=== PATIENT | male | born 1985 | race Caucasian/White ===

== ENCOUNTER 2017-01-24 19:07 | Emergency (ER) | payer BC ==
[~2017-01-24] VITALS: Ht 188 cm; Wt 102.6 kg
[2017-01-24] MEDS ORDERED: MULTLIQ7 PO (19:18)
[2017-01-24] MEDS ORDERED: [UNRECOGNIZED DRUG - OTHER] PO (19:18)
[2017-01-24] MEDS ORDERED: ASPI325T PO (19:18)
[2017-01-24] MEDS ORDERED: FISH1200 PO (19:18)
[2017-01-24] MEDS ORDERED: ACETAMINOPHEN TAB 650MG DOSE (2X325MG) PO ONE (20:00)
[2017-01-24] MEDS ORDERED: IBUP80TA PO (20:32)
[2017-01-24 20:56] VITALS: BP 156/96
--- NOTE | 2017-01-25 01:19 | REP ---
Clinical: Trauma . Technique: AP, lateral, bilateral oblique views the ankle . Findings: Marked lateral soft tissue swelling consistent with inversion injury. No acute fracture or dislocation. Skeletal structures and joint spaces are intact and the mortise appears stable. No subcutaneous emphysema or radiodense foreign body. Impression: Lateral soft tissue swelling. No acute fracture or dislocation identified. Signed by Ronen Moe MD 01/25/2017 01:11 A
== END 2017-01-24 20:57 | disposition home or self-care (01) ==
LOC: M ED 20:17
DX: S93.401A Sprain of unspecified ligament of right ankle, initial encounter (principal); X50.0XXA Overexertion from strenuous movement or load, initial encounter; Y92.89 Other specified places as the place of occurrence of the external cause; Y93.89 Activity, other specified; Y99.8 Other external cause status; Z79.82 Long term (current) use of aspirin; Z88.1 Allergy status to other antibiotic agents; Z88.2 Allergy status to sulfonamides

== ENCOUNTER → 2019-01-16 | Outpatient (REF) | payer BC ==
[~2019-01-16] MED LIST: ASPI-1 PO; FISH1200 PO; IBUP80TA PO; MULTLIQ7 PO; [UNRECOGNIZED DRUG - OTHER] PO
== END ==
LOC: M LAB REF 12:18
PROVIDERS: ATTEND Physician Assistant
DX: R30.0 Dysuria (principal)

== ENCOUNTER → 2019-02-19 | Outpatient (CLI) | payer BC ==
[2019-02-19 17:44] LABS: BASO # 0.1 10^3/uL (0.0-0.2); BASO % 0.7 % (0.0-1.0); EOS # 0.2 10^3/uL (0.0-0.50); HEMOGLOBIN 15.9 g/dl (13.5-17.5); LYMPH # 1.9 10^3/uL (1.5-4.5); LYMPH % 21.4 % (24.0-44.0); MEAN CORPUSCULAR HEMOGLOBIN 30.8 pg (27.0-33.0); MEAN CORPUSCULAR HGB CONC 33.8 g/dl (32.0-36.5); MEAN CORPUSCULAR VOLUME 90.9 fl (80.0-96.0); MONO # 0.6 10^3/uL (0.0-0.8); MONO % 7.4 % (0.0-5.0); NEUTROPHILS # 5.9 10^3/uL (1.8-7.7); NEUTROPHILS % 68.2 % (36.0-66.0); PLATELET COUNT, AUTOMATED 219 10^3/uL (150-450); RED BLOOD COUNT 5.17 10^6/uL (4.30-6.10); WHITE BLOOD COUNT 8.7 10^3/uL (4.0-10.0)
[2019-02-19 17:55] LABS: ALBUMIN 4.5 GM/DL (3.2-5.2); ALT/SGPT 65 U/L (12-78); BILIRUBIN,TOTAL 0.4 MG/DL (0.2-1.0); BLOOD UREA NITROGEN 20 MG/DL (7-18); CALCIUM LEVEL 9.5 MG/DL (8.5-10.1); CARBON DIOXIDE LEVEL 29 MEQ/L (21-32); CHLORIDE LEVEL 106 MEQ/L (98-107); CHOLESTEROL LEVEL 198 MG/DL (<200); CHOLESTEROL RISK RATIO 3.473 (<5); CREATININE FOR GFR 0.98 MG/DL (0.70-1.30); FREE T4 0.81 NG/DL (0.76-1.46); GLOMERULAR FILTRATION RATE > 60.0 (>60); GLUCOSE, FASTING 75 MG/DL (70-100); HDL CHOLESTEROL 57 MG/DL (>40); LDL CHOLESTEROL 115 MG/DL (<100); NON-HDL-C 141 MG/DL; POTASSIUM SERUM 4.7 MEQ/L (3.5-5.1); SODIUM LEVEL 142 MEQ/L (136-145); TOTAL PROTEIN 7.1 GM/DL (6.4-8.2); TRIGLYCERIDES LEVEL 132 MG/DL (<150)
[2019-02-19 18:52] LABS: HEMOGLOBIN A1c 5.2 %
== END ==
LOC: M SMT 13:16
PROVIDERS: ATTEND Physician Assistant
DX: Z13.29 Encounter for screening for other suspected endocrine disorder (principal); Z13.220 Encounter for screening for lipoid disorders

== ENCOUNTER 2020-08-27 13:54 | Emergency (ER) | payer BC, OTHER ==
[~2020-08-27] VITALS: Ht 185.4 cm; Wt 104.5 kg
[2020-08-27] MEDS ORDERED: NS 1,000 ML IV ONE (14:30)
[2020-08-27 14:44] LABS: BASO % 0.5 % (0.0-1.0); EOS % 0.5 % (0.0-3.0); HEMATOCRIT 48.5 % (42.0-52.0); HEMOGLOBIN 16.6 g/dl (13.5-17.5); LYMPH # 0.9 10^3/uL (1.5-5.0); LYMPH % 10.6 % (24.0-44.0); MEAN CORPUSCULAR HEMOGLOBIN 29.3 pg (27.0-33.0); MEAN CORPUSCULAR HGB CONC 34.2 g/dl (32.0-36.5); MEAN CORPUSCULAR VOLUME 85.7 fl (80.0-96.0); MONO # 0.5 10^3/uL (0.0-0.8); MONO % 5.9 % (0.0-5.0); NEUTROPHILS # 6.8 10^3/uL (1.5-8.5); NEUTROPHILS % 81.8 % (36.0-66.0); PLATELET COUNT, AUTOMATED 208 10^3/uL (150-450); RED BLOOD COUNT 5.66 10^6/uL (4.30-6.10); WHITE BLOOD COUNT 8.4 10^3/uL (4.0-10.0)
--- NOTE | 2020-08-27 14:49 | REP ---
INDICATION: CHEST PAIN. COMPARISON: 12/24/2007. TECHNIQUE: SINGLE PORTABLE AP VIEW OF THE CHEST WAS PERFORMED. FINDINGS: THERE IS NO ACUTE INFILTRATE OR PULMONARY EDEMA. LUNGS ARE CLEAR. HEART IS NOT SIGNIFICANTLY ENLARGED. MEDIASTINAL SILHOUETTE IS UNREMARKABLE. THE VISUALIZED OSSEOUS STRUCTURES ARE INTACT. IMPRESSION: NO ACUTE PULMONARY DISEASE. <Electronically signed by Royal Chery > 08/27/20 [id number]
[2020-08-27 15:17] LABS: BLOOD UREA NITROGEN 17 MG/DL (7-18); CALCIUM LEVEL 10.2 MG/DL (8.5-10.1); CARBON DIOXIDE LEVEL 26 MEQ/L (21-32); CHLORIDE LEVEL 103 MEQ/L (98-107); CK-MB VALUE MASS 2.9 NG/ML (<3.6); CPK CREATINE PHOSPHOKINASE 209 U/L (39-308); CREATININE FOR GFR 1.08 MG/DL (0.70-1.30); FREE T4 0.94 NG/DL (0.76-1.46); GLOMERULAR FILTRATION RATE > 60.0 (>60); GLUCOSE, FASTING 104 MG/DL (70-100); MAGNESIUM LEVEL 2.2 MG/DL (1.8-2.4); MB/CK RELATIVE INDEX 1.39 (< OR =4); SODIUM LEVEL 138 MEQ/L (136-145); THYROID STIMULATING HORMONE 0.583 uIU/ML (0.358-3.740); TROPONIN I < 0.02 NG/ML (< 0.10)
[2020-08-27] MEDS ORDERED: LABETALOL 100MG/20ML VIAL IV STA ×2 (15:51→17:11)
[2020-08-27 17:20] LABS: AMPHETAMINES LEVEL URINE NEGATIVE (NEGATIVE); BARBITURATES URINE NEGATIVE (NEGATIVE); BENZODIAZEPINES URINE NEGATIVE (NEGATIVE); CANNABINOIDS URINE NEGATIVE (NEGATIVE); COCAINE METABOLITE URINE NEGATIVE (NEGATIVE); METHADONE URINE NEGATIVE (NEGATIVE); OPIATES URINE NEGATIVE (NEGATIVE); PHENCYCLIDINE URINE NEGATIVE (NEGATIVE)
[2020-08-27] MEDS ORDERED: METO25TA4 PO ×2 (17:55→18:37)
[2020-08-27] MEDS ORDERED: METOPROLOL TART 25 MG TABLET PO ONE (18:00)
--- NOTE | 2020-08-27 18:17 | ECGEPIP ---
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
[2020-08-27 18:30] VITALS: BP_SYST 154; BP_SYST 161; BP_DIAS 102; BP_DIAS 104
== END 2020-08-27 18:43 | disposition home or self-care (01) ==
LOC: M ED 13:54
DX: I10 Essential (primary) hypertension (principal); R00.2 Palpitations; Z79.82 Long term (current) use of aspirin; Z79.899 Other long term (current) drug therapy; Z88.2 Allergy status to sulfonamides

== ENCOUNTER → 2021-06-01 | Outpatient (REF) | payer OTHER ==
[~2021-06-01] MED LIST changes: +METO25TA4 PO
== END ==
LOC: M SMT 12:49
PROVIDERS: ATTEND Urology
DX: Z30.2 Encounter for sterilization (principal)

== ENCOUNTER → 2021-07-04 | Outpatient (REF) | payer OTHER ==
[2021-07-04 13:20] LABS: SEMEN APPEARANCE OPAQUE (OPAQUE); SEMEN VISCOSITY LIQUID (LIQUID); SEMEN VOLUME 2.5 ml (2.0-5.0); WBC CONCENTRATION <=1 M/ml (<=1 M/ml)
== END ==
LOC: M SMT 13:15
PROVIDERS: ATTEND Urology
DX: Z30.2 Encounter for sterilization (principal)